=== PATIENT | female | born 1990 | race Caucasian/White ===

== ENCOUNTER 2017-03-10 16:28 | Emergency (ER) | payer OTHER ==
[~2017-03-10 16:28] MED LIST: COLACE 100MG C100 MG PO
[2017-03-10 17:25] LABS: HEMOGLOBIN 11.7 gm/dl (12.3-15.3); RED BLOOD COUNT 4.26 M/UL (4.00-5.10); WHITE BLOOD COUNT 7.6 K/UL (4.5-11.0)
[2017-03-10 17:47] LABS: BUN/CREATININE RATIO 20 (0-10)
[2017-06-04] MEDS ORDERED: SPRINTEC 28 DA1 EACH PO (21:45)
[2017-06-06] MEDS ORDERED: AUGMENTIN 875-1 EACH PO (21:53)
[2017-06-06] MEDS ORDERED: FLAGYL500 MG PO (21:53)
== END 2017-03-10 22:42 | disposition home or self-care (01) ==
LOC: ER1 16:28
PROVIDERS: Emergency Medicine
DX: K83.8 Other specified diseases of biliary tract (principal); Z90.49 Acquired absence of other specified parts of digestive tract
CPT/HCPCS: 36415; 80053; 81001; 83690; 84703; 85025; 87081; 87086; 87880; 96361; 96374; 99284; J2405; J7030; J7050; Q9962